=== PATIENT | female | born 1970 | race Caucasian/White ===

== ENCOUNTER → 2018-09-18 | Outpatient (CLI) | payer BC ==
[2018-09-21 00:07] LABS: ANTINUCLEAR ANTIBODIES DIRECT Negative (Negative); DEHYDROEPIANDROSTERONE SULFATE 164.8 ug/dL (41.2-243.7); TESTOSTERONE FREE (DIRECT) 1.5 pg/mL (0.0-4.2)
== END ==
LOC: M LAB 16:13
PROVIDERS: ATTEND Nurse Practitioner
DX: L64.8 Other androgenic alopecia (principal)

== ENCOUNTER → 2018-12-29 | Outpatient (CLI) | payer BC ==
[2018-12-29 11:25] LABS: MEAN CORPUSCULAR HEMOGLOBIN 29.4 pg (27.0-33.0); MEAN CORPUSCULAR HGB CONC 34.1 g/dl (32.0-36.5); PLATELET COUNT, AUTOMATED 301 10^3/uL (150-450); RED BLOOD COUNT 4.77 10^6/uL (4.00-5.40); WHITE BLOOD COUNT 9.9 10^3/uL (4.0-10.0)
[2018-12-29 11:57] LABS: THYROID STIMULATING HORMONE 1.98 uIU/ML (0.358-3.740)
== END ==
LOC: M LAB 10:01
PROVIDERS: ATTEND Dermatology
DX: L65.9 Nonscarring hair loss, unspecified (principal)

== ENCOUNTER → 2020-02-17 | Outpatient (CLI) | payer SELFPAY | LOC: M LABSMTC 16:13 | PROVIDERS: ATTEND Pediatrics | DX: Z20.828 Contact with and (suspected) exposure to other viral communicable diseases (principal) ==

== ENCOUNTER → 2020-04-17 | Outpatient (CLI) | payer SELFPAY | LOC: M LABSMTC 11:14 | PROVIDERS: ATTEND Anesthesiology | DX: Z01.812 Encounter for preprocedural laboratory examination (principal); Z20.822 Contact with and (suspected) exposure to COVID-19 ==

== ENCOUNTER 2020-04-22 06:49 | Day surgery (SDC) | payer BC ==
[~2020-04-22] VITALS: Ht 162.6 cm; Wt 79.4 kg
--- OUTSIDE RECORDS SUMMARY | 2020-04-22 06:58 | CCD ---
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 AUTM [phone] Problems Active Problems Provider Date Screening for malignant neoplasm of colon Elijah beverly M.D. Onset: 04/07/2020 Social History Type Date Description Comments Sex Unknown ETOH Use Denies alcohol use Tobacco Use Start: Unknown Patient has never smoked Allergies, Adverse Reactions, Alerts Description No Known Drug Allergies Medications Active Medications SIG Qnty Indications Ordering Provide r Date S[place] [id number] Tablets as directed 1box Elijah Rasheed M.D. 04/07/2020 History Medications No Active Medications Elijah mitchell M.D. 04/07/2020 - 04/07/2020 Immunizations Description No Information Available Vital Signs Date Vital Result Comment 04/07/2020 3:20pm Height 64 inches 5'4" Weight 178.00 lb BP Systolic 115 mmHg BP Diastolic 81 mmHg Heart Rate 93 /min BMI (Body Mass Index) 30.6 kg/m2 Weight 80.741 kg Body Temperature 97.5 F Results Description No Information Available Procedures Description No Information Available Medical Devices Description No Information Available Encounters Type Date Location Provider Dx Diagnosis Office Visit 04/07/2020 3:15p Main Office Elijah Rasheed M.D. Z 12.11 Encounter for screening for malignant neoplasm of colon Assessments Date Code Description Provider 04/07/2020 Z12.11 Screening for malignant neoplasm of colon Elijah Rasheed M.D. Plan of Treatment Future Appointment(s):* 04/22/2020 7:30 am - Elijah Rasheed M.D. at Main Office 04/07/2020 - Elijah Rasheed M.D.* Z12.11 Screening for malignant neoplasm of colon* Comments:* 49 yo wf who presents for a screening colonoscopy, due to father having colon cancer at age 69. No c/o abdominal pain, weight loss, change in bowel habits, or rectal bleeding. Positive family h/o colon cancer. No h/o chest pain, or sob. Plan:1.Schedule patient for a colonoscopy.2.Informed consent given to the patient.3.Pt. advised to stop aspirin,plavix, and anticoagulants at least 3 to 7 days prior to the procedure. Functional Status Description No Information Available Mental Status Description No Information Available Referrals Description No Information Available
--- OUTSIDE RECORDS SUMMARY | 2020-04-22 06:58 | CCD ---
Continuity of Care Document (CCD) Created on: 02/20/2020 AlessandroDanielLeonela M External Reference #: [id number] : 1970 Sex: Female Author Author Leonela WINTERS M.D. Organization Unknown Address [address] [place] [id number] Phone [phone] Problems Description No Information Available Social History Type Date Description Comments Sex Unknown ETOH Use Occasionally consumes alcohol Tobacco Use Start: Unknown Patient has never smoked Recreational Drug Use Denies Drug Use Allergies, Adverse Reactions, Alerts Description No Known Drug Allergies Medications Description No Active Medications Immunizations CPT Code Status Date Vaccine Lot # [id number] Refused 01/15/2019 Influenza Virus Vaccine, Quadrivalent, Slit Virus, Im Use 3Y & Up Vital Signs Date Vital Result Comment 01/14/2020 10:17am BP Systolic 114 mmHg BP Diastolic 66 mmHg Body Temperature 98.4 F Heart Rate 78 /min Respiratory Rate 14 /min Height 64 inches 5'4" Weight 178.00 lb [place] Body Weight 120 lb BMI (Body Mass Index) 30.6 kg/m2 O2 % BldC Oximetry 98 % 03/25/2019 1:46pm BP Systolic 112 mmHg BP Diastolic 70 mmHg Body Temperature 97.8 F Heart Rate 92 /min Respiratory Rate 16 /min Height 64 inches 5'4" Weight 172.00 lb [place] Body Weight 120 lb BMI (Body Mass Index) 29.5 kg/m2 O2 % BldC Oximetry 97 % Results Test Acquired Date Facility Test Result H/L Range Note Coronavirus 2019 ([facility]) 02/17/2020 [facility] ([facility]) [phone] Coronavirus 2018 ([facility]) <SEE NOTE> 1 1 Test: COVID-19 Nasal/Naspharynx Result: NOT DETECTED Reference Units: Not detected Note: Please consider re-collection of a new specimen, if clinically indicated. Note: The COVID-19 assay is under Emergency Use Authorization(EUA) by the U.S. Food and Drug Administration. [facility] is designated as a high complexity laboratory by the Clinical Laboratory Improvement Amendments of 1988(CLIA) and is qualified to perform this test. ASSAY INFORMATION: Real Time RT-PCR Patient samples for this assay have been pooled. All positive samples have been individually repeated for confirmation. The pooling protocol using the anayeli SARS-CoV-2 assay has been added to [id number] on December 26, 2019. Procedures Description No Information Available Medical Devices Description No Information Available Encounters Type Date Location Provider Dx Diagnosis Office Visit 01/14/2020 9:30a [facility] Wilberto Winters M. D. Z00.00 Encntr for general adult medical exam w/o abnormal findings Assessments Date Code Description Provider 01/14/2020 Z00.00 Encounter for genera l adult medical examination without abnormal findings Wilberto Winters M.D. Plan of Treatment Future Appointment(s):* 01/15/2021 9:30 am - Wilberto Winters M.D. at [facility] Functional Status Description No Information Available Mental Status Description No Information Available Referrals Refer to Reason for Referral Status Appt Date Elijah Rasheed MD family history of colon Ca- cscope Sent 04/07/2020 [address] [place] [address] [phone] Rocco Hadley M.D. family hx of colon caa- colonoscopy Sent [address] [address] [phone]
--- OUTSIDE RECORDS SUMMARY | 2020-04-22 06:58 | CCD ---
Author Author [facility] Organization [facility] Address Unknown Phone Unavailable Care Team Providers Care Mold Changer Name Role Phone Shubham Rasheed MD Unavailable Unavailable Shubham Rasheed MD Unavailable Unavailable Shubham Rasheed MD Unavailable Unavailable Shubham Rasheed MD Unavailable Unavailable Shubham Rasheed MD Unavailable Unavailable Shubham Rasheed MD Unavailable Unavailable Shubham Rasheed MD Unavailable Unavailable Shubham Rasheed MD Unavailable Unavailable Shubham Rasheed MD Unavailable Unavailable Shubham Rasheed MD Unavailable Unavailable Shubham Rasheed MD Unavailable Unavailable Shubham Rasheed MD Unavailable Unavailable Shubham Rahseed MD Unavailable Unavailable Shubham Rasheed MD Unavailable Unavailable Shubham Rasheed MD Unavailable Unavailable Shubham Rasheed MD Unavailable Unavailable Shubham Rasheed MD Unavailable Unavailable Shubham Rasheed MD Unavailable Unavailable Shubham Rasheed MD Unavailable Unavailable Shubham Rasheed MD Unavailable Unavailable Shubham Rasheed MD Unavailable Unavailable Shubham Rasheed MD Unavailable Unavailable Shubham Rasheed MD Unavailable Unavailable Shubham Rasheed MD Unavailable Unavailable Shubham Rasheed MD Unavailable Unavailable Shubham Rasheed MD Unavailable Unavailable Shubham Rasheed MD Unavailable Unavailable Shubham Rasheed MD Unavailable Unavailable Shubham Rasheed MD Unavailable Unavailable Shubham Rasheed MD Unavailable Unavailable Shubham Rasheed MD Unavailable Unavailable Shubham Rasheed MD Unavailable Unavailable Shubham Rasheed MD Unavailable Unavailable Shubham Rasheed MD Unavailable Unavailable Shubham Rasheed MD Unavailable Unavailable Wili S Elijah MCKEON Unavailable Unavailable Wili S Elijah MCKEON Unavailable Unavailable Wili, S Elijah MCKEON Unavailable Unavailable Wili S Elijah MCKEON Unavailable Unavailable Shubham Rasheed MD Unavailable Unavailable Shubham Rasheed MD Unavailable Unavailable Shubham Rasheed MD Unavailable Unavailable Shubham Rasheed MD Unavailable Unavailable Shubham Rasheed MD Unavailable Unavailable Shubham Rasheed MD Unavailable Unavailable Shubham Rasheed MD Unavailable Unavailable Shubham Rasheed MD Unavailable Unavailable Shubham Rasheed MD Unavailable Unavailable Shubham Rasheed MD Unavailable Unavailable JONNY BURNHAM Unavailable Unavailable Aj WINTERS MD Unavailable Unavailable Aj WINTERS MD Unavailable Unavailable Aj WINTERS MD Unavailable Unavailable Aj WINTERS MD Unavailable Unavailable Aj WINTERS MD Unavailable Unavailable Aj WINTERS MD Unavailable Unavailable Aj WINTERS MD Unavailable Unavailable Aj WINTERS MD Unavailable Unavailable Aj WINTERS MD Unavailable Unavailable Aj WINTERS MD Unavailable Unavailable Aj WINTERS MD Unavailable Unavailable Aj WINTERS MD Unavailable Unavailable Aj WINTERS MD Unavailable Unavailable Aj WINTERS MD Unavailable Unavailable Aj WINTERS MD Unavailable Unavailable Aj WINTERS MD Unavailable Unavailable Aj WINTERS MD Unavailable Unavailable Aj WINTERS MD Unavailable Unavailable Aj WINTERS MD Unavailable Unavailable Aj WINTERS MD Unavailable Unavailable Aj WINTERS MD Unavailable Unavailable Aj WINTERS MD Unavailable Unavailable Aj WINTERS MD Unavailable Unavailable Aj WINTERS MD Unavailable Unavailable Aj WINTERS MD Unavailable Unavailable Aj WINTERS MD Unavailable Unavailable Aj WINTERS MD Unavailable Unavailable Aj WINTERS MD Unavailable Unavailable Aj WINTERS MD Unavailable Unavailable Aj WINTERS MD Unavailable Unavailable Aj WINTERS MD Unavailable Unavailable Aj WINTERS MD Unavailable Unavailable Aj WINTERS MD Unavailable Unavailable Aj WINTERS MD Unavailable Unavailable Aj WINTERS MD Unavailable Unavailable Aj WINTERS MD Unavailable Unavailable Aj WINTERS MD Unavailable Unavailable Aj WINTERS MD Unavailable Unavailable Aj WINTERS MD Unavailable Unavailable Aj WINTERS MD Unavailable Unavailable Aj WINTERS MD Unavailable Unavailable Aj WINTERS MD Unavailable Unavailable Aj WINTERS MD Unavailable Unavailable Aj WINTERS MD Unavailable Unavailable Aj WINTERS MD Unavailable Unavailable Aj WINTERS MD Unavailable Unavailable Aj WINTERS MD Unavailable Unavailable Aj WINTERS MD Unavailable Unavailable Aj WINTERS MD Unavailable Unavailable Aj WINTERS MD Unavailable Unavailable Aj WINTERS MD Unavailable Unavailable SINGH H WILBERTO MCKEON Unavailable Unavailable SINGH H WILBERTO MCKEON Unavailable Unavailable Aj WINTERS MD Unavailable Unavailable SINGH H WILBERTO MCKEON Unavailable Unavailable SINGH H WILBERTO MCKEON Unavailable Unavailable SINGH H WILBERTO MCKEON Unavailable Unavailable SINGH H WILBERTO MCKEON Unavailable Unavailable SINGH H WILBERTO MCKEON Unavailable Unavailable SINGH H WILBERTO MCKEON Unavailable Unavailable SINGH H WILBERTO MCKEON Unavailable Unavailable SINGH H WILBERTO MCKEON Unavailable Unavailable SINGH H WILBERTO MCKEON Unavailable Unavailable SINGH H WILBERTO MCKEON Unavailable Unavailable SINGH H WILBERTO MCKEON Unavailable Unavailable Aj WINTERS MD Unavailable Unavailable Aj WINTERS MD Unavailable Unavailable Aj WINTERS MD Unavailable Unavailable Aj WINTERS MD Unavailable Unavailable Aj WINTERS MD Unavailable Unavailable Aj WINTERS MD Unavailable Unavailable Aj WINTERS MD Unavailable Unavailable Aj WINTERS MD Unavailable Unavailable Aj WINTERS MD Unavailable Unavailable Aj WINTERS MD Unavailable Unavailable Aj WINTERS MD Unavailable Unavailable Tej, Jonny Unavailable Tej, Jonny Unavailable Tej, Jonny Unavailable Tej, Jonny Unavailable Tej, Jonny Unavailable TEJ, JONNY Unavailable Unavailable Aj WINTERS MD Unavailable Unavailable Aj WINTERS MD Unavailable Unavailable Aj WINTERS MD Unavailable Unavailable Aj WINTERS MD Unavailable Unavailable Aj WINTERS MD Unavailable Unavailable Aj WINTERS MD Unavailable Unavailable Aj WINTERS MD Unavailable Unavailable Aj WINTERS MD Unavailable Unavailable Aj WINTERS MD Unavailable Unavailable Aj WINTERS MD Unavailable Unavailable Aj WINTERS MD Unavailable Unavailable Aj WINTERS MD Unavailable Unavailable Aj WINTERS MD Unavailable Unavailable Aj WINTERS MD Unavailable Unavailable Aj WINTERS MD Unavailable Unavailable Aj WINTERS MD Unavailable Unavailable Aj WINTERS MD Unavailable Unavailable Aj WINTERS MD Unavailable Unavailable Aj WINTERS MD Unavailable Unavailable Aj WINTERS MD Unavailable Unavailable Aj WINTERS MD Unavailable Unavailable Aj WINTERS MD Unavailable Unavailable Aj WINTERS MD Unavailable Unavailable Aj WINTERS MD Unavailable Unavailable Aj WINTERS MD Unavailable Unavailable Aj WINTERS MD Unavailable Unavailable Aj WINTERS MD Unavailable Unavailable Aj WINTERS MD Unavailable Unavailable Aj WINTERS MD Unavailable Unavailable Aj WINTERS MD Unavailable Unavailable Aj WINTERS MD Unavailable Unavailable Aj WINTERS MD Unavailable Unavailable Aj WINTERS MD Unavailable Unavailable Aj WINTERS MD Unavailable Unavailable Aj WINTERS MD Unavailable Unavailable Aj WINTERS MD Unavailable Unavailable Aj WINTERS MD Unavailable Unavailable Aj WINTERS MD Unavailable Unavailable SINGH H WILBERTO MCKEON Unavailable Unavailable SINGH H WILBERTO MCKEON Unavailable Unavailable Aj WINTERS MD Unavailable Unavailable SINGH H WILBERTO MCKEON Unavailable Unavailable Aj WINTERS MD Unavailable Unavailable Aj WINTERS MD Unavailable Unavailable SINGH H WILBERTO MKCEON Unavailable Unavailable Aj WINTERS MD Unavailable Unavailable Aj WINTERS MD Unavailable Unavailable SINGH H WILBERTO MCKEON Unavailable Unavailable Aj WINTERS MD Unavailable Unavailable Aj WINTERS MD Unavailable Unavailable Aj WINTERS MD Unavailable Unavailable Aj WINTERS MD Unavailable Unavailable Aj WINTERS MD Unavailable Unavailable Aj WINTERS MD Unavailable Unavailable Aj WINTERS MD Unavailable Unavailable Aj WINTERS MD Unavailable Unavailable Aj WINTERS MD Unavailable Unavailable Aj WINTERS MD Unavailable Unavailable Aj WINTERS MD Unavailable Unavailable Aj WINTERS MD Unavailable Unavailable Aj WINTERS MD Unavailable Unavailable Aj WINTERS MD Unavailable Unavailable Aj WINTERS MD Unavailable Unavailable Aj WINTERS MD Unavailable Unavailable Aj WINTERS MD Unavailable Unavailable Aj WINTERS MD Unavailable Unavailable Aj WINTERS MD Unavailable Unavailable Aj WINTERS MD Unavailable Unavailable Aj WINTERS MD Unavailable Unavailable Aj WINTERS MD Unavailable Unavailable Aj WINTERS MD Unavailable Unavailable Aj WINTERS MD Unavailable Unavailable Aj WINTERS MD Unavailable Unavailable Aj WINTERS MD Unavailable Unavailable Aj WINTERS MD Unavailable Unavailable Aj WINTERS MD Unavailable Unavailable Jarrett, D Kendra SUPERINTENDENT LOGGING Unavailable Unavailable Jarrett, D Kendra SUPERINTENDENT LOGGING Unavailable Unavailable Jarrett, D Kendra SUPERINTENDENT LOGGING Unavailable Unavailable Jarrett, D Kendra SUPERINTENDENT LOGGING Unavailable Unavailable Jarrett, D Kendra SUPERINTENDENT LOGGING Unavailable Unavailable Jarrett, D Kendra SUPERINTENDENT LOGGING Unavailable Unavailable Jarrett, D Kendra SUPERINTENDENT LOGGING Unavailable Unavailable Jarrett, D Kendra SUPERINTENDENT LOGGING Unavailable Unavailable Jarrett, D Kendra SUPERINTENDENT LOGGING Unavailable Unavailable Jarrett, D Kendra SUPERINTENDENT LOGGING Unavailable Unavailable Jarrett, D Kendra SUPERINTENDENT LOGGING Unavailable Unavailable Jarrett, D Kendra SUPERINTENDENT LOGGING Unavailable Unavailable Jarrett, D Kendra SUPERINTENDENT LOGGING Unavailable Unavailable Jarrett, D Kendra SUPERINTENDENT LOGGING Unavailable Unavailable Jarrett, D Kendra SUPERINTENDENT LOGGING Unavailable Unavailable Jarrett, D Kendra SUPERINTENDENT LOGGING Unavailable Unavailable Jarrett, D Kendra SUPERINTENDENT LOGGING Unavailable Unavailable Jarrett, D Kendra SUPERINTENDENT LOGGING Unavailable Unavailable Jarrett, D Kendra SUPERINTENDENT LOGGING Unavailable Unavailable Jarrett, D Kendra SUPERINTENDENT LOGGING Unavailable Unavailable Jarrett, D Kendra SUPERINTENDENT LOGGING Unavailable Unavailable Jarrett, D Kendra SUPERINTENDENT LOGGING Unavailable Unavailable Jarrett, D Kendra SUPERINTENDENT LOGGING Unavailable Unavailable Jarrett, D Kendra SUPERINTENDENT LOGGING Unavailable Unavailable Jarrett, D Kendra SUPERINTENDENT LOGGING Unavailable Unavailable Jarrett, D Kendra SUPERINTENDENT LOGGING Unavailable Unavailable Jarrett, D Kendra SUPERINTENDENT LOGGING Unavailable Unavailable Jarrett, D Kendra SUPERINTENDENT LOGGING Unavailable Unavailable Jarertt, D Kendra SUPERINTENDENT LOGGING Unavailable Unavailable Jarrett, D Kendra SUPERINTENDENT LOGGING Unavailable Unavailable Jarrett, D Kendra SUPERINTENDENT LOGGING Unavailable Unavailable Jarrett, D Kendra SUPERINTENDENT LOGGING Unavailable Unavailable Jarrett, D Kendra SUPERINTENDENT LOGGING Unavailable Unavailable Jarrett, D Kendra SUPERINTENDENT LOGGING Unavailable Unavailable Jarrett, D Kendra SUPERINTENDENT LOGGING Unavailable Unavailable Jarrett, D Kendra SUPERINTENDENT LOGGING Unavailable Unavailable Jarrett, D Kendra SUPERINTENDENT LOGGING Unavailable Unavailable Jarrett, D Kendra SUPERINTENDENT LOGGING Unavailable Unavailable Jarrett, D Kendra SUPERINTENDENT LOGGING Unavailable Unavailable Jarrett, D Kendra SUPERINTENDENT LOGGING Unavailable Unavailable Jarrett, D Kendra SUPERINTENDENT LOGGING Unavailable Unavailable Jarrett, D Kendra SUPERINTENDENT LOGGING Unavailable Unavailable Jarrett, D Kendra SUPERINTENDENT LOGGING Unavailable Unavailable Jarrett, D Kendra SUPERINTENDENT LOGGING Unavailable Unavailable Jarrett, D Kendra SUPERINTENDENT LOGGING Unavailable Unavailable Jarrett, D Kendra SUPERINTENDENT LOGGING Unavailable Unavailable Jarrett, D Kendra SUPERINTENDENT LOGGING Unavailable Unavailable Jarrett, D Kendra SUPERINTENDENT LOGGING Unavailable Unavailable Jarrett, D Kendra SUPERINTENDENT LOGGING Unavailable Unavailable Jarrett, D Kendra SUPERINTENDENT LOGGING Unavailable Unavailable Jarrett, D Kendra SUPERINTENDENT LOGGING Unavailable Unavailable Re-disclosure Warning The records that you are about to access may contain information from federally-assisted alcohol or drug abuse programs. If such information is present, then the following federally mandated warning applies: This information has been disclosed to you from records protected by federal confidentiality rules (42 CFR part 2). The federal rules prohibit you from making any further disclosure of this information unless further disclosure is expressly permitted by the written consent of the person to whom it pertains or as otherwise permitted by 42 CFR part 2. A general authorization for the release of medical or other information is NOT sufficient for this purpose. The Federal rules restrict any use of the information to criminally investigate or prosecute any alcohol or drug abuse patient.The records that you are about to access may contain highly sensitive health information, the redisclosure of which is protected by Article 27-F of the [place] State Public Health law. If you continue you may have access to information: Regarding HIV / AIDS; Provided by facilities licensed or operated by the [facility] Office of Mental Health; or Provided by the [facility] Office for People With Developmental Disabilities. If such information is present, then the following [facility] mandated warning applies: This information has been disclosed to you from confidential records which are protected by state law. State law prohibits you from making any further disclosure of this information without the specific written consent of the person to whom it pertains, or as otherwise permitted by law. Any unauthorized further disclosure in violation of state law may result in a fine or fci sentence or both. A general authorization for the release of medical or other information is NOT sufficient authorization for further disc losure. Encounters Encounter Providers Location Date Indications Data Source(s ) Outpatient Attender: Elijah Rasheed MD Main Office 04/07/2020 02:15:00 PM EST [facility] ([facility]) Outpatient Referrer: Kendra Jarrett NP 03/31/2020 03:41:09 PM EST [facility] ELIJAHC-DAVID 03/31/2020 03:36:15 PM EST [facility] Outpatient Attender: JONNY BURNHAMAttender: JONNY NAVA C-DAVID 03/26/2020 12:00:00 AM EST - 03/26/2020 10:01:29 AM EST [facility] Outpatient Referrer: Jonny Burnham 03/04/2020 03:08:58 PM ES T [facility] Outpatient Attender: WILBERTO WINTERS MD 02/24/2020 08 :53:00 AM EST X VIEWS LEFT BREAST [facility] X VIEWS LEFT BREAST Outpatient Attender: WILBERTO WINTERS MD 02/10/2020 03:10:00 PM EST SCREEN [facility] SCREEN Outpatient Attender: WILBERTO WINTERS MD [facility] 05/2019 08:30:00 AM EST [facility] ([facility] [address] [place] [phone] 09/03/2019 12:00:00 AM EDT eCW1 ([facility]) [facility] [address] [place] [phone] 02/27/2019 12:00:00 AM EST eCW1 ([facility]) Medications Medication Brand Name Start Date Product Form Dose Route Admi nistrative Instructions Pharmacy Instructions Status Indications Reaction Description Data Source(s) 1.479-0.188 gram 04/16/2020 12:00:00 AM EST tablet 24 TAKE DIRECTED TAKE DIRECTED SOLD: 04/16/2020 [facility] No Active Medications 04/07/2020 12:00:00 AM EST completed [facility] ([facility]) Sutab Sutab 04/07/2020 12:00:00 AM EST active [facility] ([facility]) 75 mg 04/08/2019 12:00:00 AM EST capsule 10 TAKE 1 CAPSULE BY MOUTH ONCE DAILY FOR 10 DAYS TAKE 1 CAPSULE BY MOUTH ONCE DAILY FOR 10 DAYS SOLD: 04/08/2019 [facility] Insurance Providers Payer name Policy type / Coverage type Policy ID Covered republican ID Covered republican's relationship to kruse Policy Kruse Plan Information [employer] [place] P[place]/307 [id number] SELF PAY ONLY [id number] [employer] BCBS [id number] [employer] BCBS [id number] [facility] YND [id number] [employer] [place] P[place] 302/307 [id number] [employer] [place] P[place] 302/307 [id number] [employer] [place] P[place] 302/307 [id number] [employer] [place] P[place] 302/307 [id number] [employer] [place] P[place] 302/307 [id number] [employer] [place] P[place] 302/307 [id number] Problems, Conditions, and Diagnoses Code Display Name Description Problem Type Effective Dates Data Source(s) 741858988 Screening for malignant neoplasm of colo n Screening for malignant neoplasm of colon Problem 04/07/2020 12:00:00 AM EST [facility] ([facility]) R92.8 Abnormal finding on breast imaging Abnormal find ing on breast imaging [id number] 03/04/2020 12:00:00 AM EST [facility] Results ID Date Data Source [id number] 04/17/2020 11:30:00 AM EST [facility] Name Value Range Interpretation Code Description Data Alla rce(s) Supporting Document(s) SARS coronavirus 2 RNA Not Detected [facility] This lab was ordered by [facility] and reported by [facility]. ID Date Data Source [id number] 03/31/2020 03:36:15 PM EST [facility] NT INFORMATIONPatient MRN Name Date of Age Gend*PT [id number] [facility] 1970 49 years F ---PT Location Admission Date/Time Visit ID Attending Provider --- --- --- --- EPI ID CSN Admitting Pro vider [id number] ---Addended by: KENDRA JARRETT on: 03/31/2020 03:36 PM Modules accepted: Orders Name Value Range Interpretation Code Description Data Alla rce(s) Supporting Document(s) ID Date Data Source [id number] 03/26/2020 11:59:24 AM EST [facility] NT INFORMATIONPatient MRN Name Date of Age Gend*PT [id number] [facility] 1970 49 years F ---PT Location Admission Date/Time Visit ID Attending Provider --- --- --- --- EPI ID CSN Admitting Pro vider [id number] ---Addended by: JONNY BURNHAM on: 03/26/2020 11:59 AM Modules accepted: Level of Service Name Value Range Interpretation Code Description Data Alla rce(s) Supporting Document(s) ID Date Data Source [id number] 03/26/2020 11:33:44 AM EST [facility] NT INFORMATIONPatient MRN Name Date of Age Gend*PT [id number] [facility] 1970 49 years F ---PT Location Admission Date/Time Visit ID Attending Provider --- --- --- --- EPI ID CSN Admitting Pro vider [id number] ---03/26/20 Ariana Montiel [id number] female 49 yearsLaticjoie Montiel is a new breast consultation; BI-RADS 4; BX recommended.Pertinent History:Ariana Montiel comes in today for new breast consultation referred from . She had her screening mammogram completed 02/10/20, there was a focalasymmetry about 11:00 in her left breast. Additional imaging was needed. Leftmammo/sono completed 02/24/20, there was persistent focal asymmetry seen oncompression views, no US correlate. Stereo bx recommended, which she isscheduled for today.03/26/2020 LEFT stereo bx: results pendingPrevious breast bx: noneMenstrual History:Menarche: 13Age at first live :32Menopause: pre menopausalG 4 , P 3HRT: noInfertility Drugs in past: noOC use in past: yesSocial History:Occupation: [employer] MarriedSmoking: deniesETOH: deniesFamily cancer history:PGM - breast 70sMGM - ovarian 80sF - crc 68PA - crc ~60M - had GT, negative per ptSubjective:Ariana Montiel comes in today for new breast consultation for abnormal findings ofthe left breast on recent imaging as noted above. Stereotactic core bx isrecommended, which she is scheduled for today. No palpable abnormality noted onher CBE.I reviewed her imaging with her in detail. She has been scheduled today for abreast core biopsy. We discussed the biopsy procedure and what to expect duringand afterward. She understands that once the results have been received shewill be notified of them, and given appropriate instructions and information onhow we will proceed with her follow up. I tried to assure her most biopsiesresult in benign disease, but obviously we will not know this until it has beencompleted.Should the results reveal a breast cancer, or high risk lesion, she will be setup for surgical consultation here in our office. Should the biopsy prove to bebenign, she will return in 6 months for another clinical breast examination, andshort term imaging. We discussed how a biopsy is performed, she has agreed tomove forward with the biopsy.Current Meds: No current outpatient medications on file.Allergies: No Known Drug AllergiesHistory reviewed. No pertinent past medical history.Family HistoryProblem Relation Age of Onset Colon cancer Father Colon cancer Paternal Aunt Ovarian cancer Maternal Grandmother 80 Breast cancer Paternal Grandmother 70Social HistorySocioeconomic History Marital status: Spouse name: Not on file Number of children: Not on file Years of education: Not on file Highest education level: Not on fileOccupational History Not on fileSocial Needs Financial resource strain: Not on file Food insecurity: Worry: Not on file Inability: Not on file Transportation needs: Medical: Not on file Non-medical: Not on fileTobacco Use Smoking status: Never Smoker Smokeless tobacco: Current UserSubstance and Sexual Activity Alcohol use: Not Currently Drug use: Never Sexual activity: Not on fileLifestyle Physical activity: Days per week: Not on file Minutes per session: Not on file Stress: Not on fileRelationships Social connections: Talks on phone: Not on file Gets together: Not on file Attends jain service: Not on file Active member of club or organization: Not on file Attends meetings of clubs or organizations: Not on file R elationship status: Not on file Intimate partner violence: Fear of current or ex partner: Not on file Emotionally abused: Not on file Physically abused: Not on file Forced sexual activity: Not on fileOther Topics Concern Bike Helmet Not Asked History of Falls Not Asked Self-Exams Not Asked Caffeine Concern Not Asked Hobby Hazards Not Asked Sleep Concern Not Asked Daily Calcium Supplement Not Asked Lead Exposure Not Asked Special Diet Not Asked Daily Vitamin D Supplement Not Asked Service Not Asked Stress Concern Not Asked Domestic Violence in home Not Asked Radon exposure Not Asked Weight Concern Not Asked Exercise Not Asked Seat Belt Not Asked Well water Not Asked Firearms in home Not AskedSocial History Narrative Not on filePast Surgical History:Procedure Laterality Date SECTIONReview of SystemsReview of SystemsConstitutional: Negative.HENT: Negative.Eyes: Negative.Respiratory: Negative.Cardiovascular: Negative.Gastrointestinal: Negative.Endocrine: Negative.Genitourinary: Negative.Musculoskeletal: Negative.Skin: Negative.Allergic/Immunologic: Negative.Neurological: Negative.Hematological: Negative.Psychiatric/Behavioral: Negative.Objective:Vitals: 03/26/20 0934BP: 116/79Pulse: 81Resp: 18Exam:Const: Appears pleasant. No signs of apparent distress present. Alert andoriented. Patient is a good historian.Head/Face: Atraumatic, normocephalic and no lesions or masses.Eyes: Conjunctivae pink. No icterus of the sclerae bilaterally.ENMT: Oral mucosa: pink and moist with no lesions.Neck: Supple. Palpation reveals no lymphadenopathy, swelling or tenderness.Trachea midline.Resp: Respirations are regular. Lungs are clear bilaterally.CV: Rate is regular. Rhythm is regular. Extremities: No clubbing, cyanosis oredema.Breasts: Breast exam was performed while patient was in a supine position and ghulam sitting position. Breasts are medium size and symmetrical. No dimpling of thebreasts bilaterally. Breasts are normal and no dominant mass on both breasts.Bilateral infraclavicular nodes are non-palpable. Nipples: No discharge orinversion of the nipples bilaterally. Axillae: Axillae are normal to palpationbilaterally, but no lymphadenopathy of the axillae.Musculo: Walks with a normal gait for age. Upper Extremities: Full ROMbilaterally.Lower Extremities: Full ROM bilaterally.Skin: No jaundice, lesion or rash.Neuro: Neuro reveals no focal deficits.Today's imaging reveals:N/aAssessment / Plan:1. Abnormal finding on breast imagingAssessment: The patient has an area of moderate suspicion in the leftbreast(s). We recommend a/an stereotactic core biopsy. The procedure and thepost procedural period was discussed with the patient. The risks and thebenefits were discussed and included but did not limited to bleeding andinfections. The patient understands and accepts the risks and complication andwould like to move forward with the procedure.Plan: The patient will be set up for a stereotactic core biopsy of the leftbreast(s). She is aware not to take aspirin or aspirin products 5 days beforethe biopsy. We will contact her with the results. In the meantime, azam call with any problems, questions, or concerns.At today's appointment we discussed the physical examination and imagingfindings, and any questions they had were answered.We look for to seeing at her next appointment and we would be happy to see herin the interim if needed. She understands she can contact us at any time if shenotes any change in her self breast/chest wall exam, or has any questionsregarding her breast health.Dr Fontanez and Dr Garza's office follows NCCN guidelines for benign and malignantbreast disease, she is my collaborating physician. I have followed protocolsestablished with them, and periodically review charts with them.Certain parts of this note may have been carried over from prior notes tomaintain patient's pertinent medical history and continuity of care. The detailswere verified and edited as appropriate.Signature: Jonny LAILA BurnhamDate: March 26, 2020Time: 11:33 AMThis document or parts of this document, were dictated using SWIIM System software. A reasonable attempt at proofreading has beenmade to minimize errors. Please call with any questions or corrections. Name Value Range Interpretation Code Description Data Alla rce(s) Supporting Document(s) ID Date Data Source [id number] 03/26/2020 10:35:00 AM EST [facility] EOTACT[facility] BREAST BIOPSY LEFTADDENDUM: Surgical pathology report from [facility] dated 03/29/2020 is now available.Specimen received.A: Stereotactic left breast biopsy - density.Diagnosis.Breast density left core-biopsy: Benign breast tissue with fibrocystic changes including duct dilatation, apocrine metaplasia with cyst formation and mild adenosis. No significant atypia seen.Pathologic findings are likely concordant with radiographic findings.Recommend a follow-up mammogram of the left breast in six months' time.Dictated by: GER CHUNG M.D. on 1 Transcribed by: Laureano 03/30/2020 04:48 PM CDS G Code: , ,CDS Modifier: , ,cc: End of Addendum Report CLINICAL HISTORY: Left breast density.COMPARISON: Prior outside mammogram.TECHNIQUE: See belowFINDINGS: After the risks and benefits of the procedure were explained to the patient, informed consent was obtained. The patient was brought to the stereotactic unit where seam feller and stereotactic images of the left breast were obtained. The density of interest wa s identified in the posteromedial left breast. The coordinates of the calcifications were calculated and transmitted to the stereotactic unit. The breast was sterilely prepped, 1% lidocaine was used for local anesthesia, a small skin devaughn was made. The stereotactic needle was advanced into the breast and additional stereotactic images demonstrate satisfactory needle positioning. The needle was fired. Subsequently, twelve 10 gauge vacuum assisted core biopsy specimens were obtained. The breast was lavaged. A spiral shaped biopsy clip was then placed. The sheath was removed and hemostasis was achieved using manual compression. A sterile dressing was applied.Postprocedure mammogram demonstrates satisfactory positioning of the biopsy clip with respect to the previously seen density.Providers: Dr. Strattonomplications: None.IMPRESSION: Status post successful stereotactic biopsy of indeterminate left breast density.DISCLAIMER: None.Dictated by: THAD WILEY M.D. on 1 Transcribed by: swetha 03/26/2020 11:52 AM CDS G Code: , ,CDS Modifier: , ,cc: Name Value Range Interpretation Code Description Data Alla rce(s) Supporting Document(s) ID Date Data Source [id number] 02/24/2020 09:46:[address] [address] [phone] NAME SEX PT STATUS ACCOUNT NUMBER HUMERABrandoARIANA Michaels REG REF [id number] ORDERING PHYSICIAN LOCATION MEDICAL RECORD NO. Wilberto Aj Winters MAMMO [id number] ATTENDING PHYSICIAN DATE OF DATE OF EXAM/TIME Wilberto Winters 1970 02/24/20849 TYPE / EXAM DIG MAMMO DIAG LT 2D ONLY REASON FOR EXAM LEFT BREAST X VIEWS [address] [id number] [phone] NAME SEX PT STATUS ACCOUNT NUMBER HUMERABrandoARIANA Michaels REG REF [id number] ORDERING PHYSICIAN LOCATION MEDICAL RECORD NO. Wilberto Winters MAMMO [id number] ATTENDING PHYSICIAN DATE OF DATE OF EXAM/TIME Wilberto Winters 1970 02/24/20849 TYPE / EXAM DIG MAMMO DIAG LT 2D ONLY REASON FOR EXAM LEFT BREAST X VIEWS LAST CLINICAL BREAST EXAM: FIVE YEAR RISK: % LIFETIME RISK: % FAMILY HISTORY OF BREAST CARCINOMA: COMPARISON: 02/10/2020 Spot views were obtained of the left breast FINDINGS: The left breast is composed of scattered areas of fibroglandular density. A mostly well-defined asymmetry best seen on the CC view of slightly medial in location posterior depth is reidentified.. This could be in the slightly in the superior portion of left breast. This measures approximately 6.7 mm. This could represent a lymph node however definite features are not clearly seen. TARGETED ULTRASOUND OF THE LEFT BREAST. COMPARISON: Additional views obtained today FINDINGS: No disturbing appearing cystic or solid mass involving either breast. The area of mostly defined asymmetry was not seen. IMPRESSION: An area of asymmetry seen in the medial breast was not definitely seen on ultrasound and is presumed to be solid Correlated targeted ultrasound of the left breast does not identified is asymmetry.. Since this is a new finding and may represent a solid mass stereotactic biopsy is recommended for further evaluation. OVERALL FINAL ASSESSMENT OF FINDINGS BI-RADS 4 - Suspicious Abnormality OVERALL FINAL ASSESSMENT OF THE BREAST COMPOSITION Breast Density Classification: B Description: The breasts are composed of scattered areas of fibroglandular density. Reported By Rica López MD on 02/24/20945 Signed By Rica López MD on 02/24/20 1041 Date Time CC: Rica López MD; Wilberto Rocha Singh Techn: BAKLE Trans Dt/Tm: Trans by: DT Prt Dt/Tm: : Total DLP = 0.00 mGy-cm : Total Radiation Dose = 0.0000 mSv Lifetime Dose: 0 mSv Reported By Rica López MD on 02/24/20945 Signed By Rica López MD on 02/25/20 1239 Date Time CC: Rica López MD; Wilberto Winters Techn: BAKLE Trans Dt/Tm: Trans by: DT Prt Dt/Tm: : Total DLP = 0.00 mGy-cm : Total Radiation Dose = 0.0000 mSv Lifetime Dose: 0 mSv Name Value Range Interpretation Code Description Data Alla rce(s) Supporting Document(s) ID Date Data Source [id number] 02/24/2020 09:46:00 AM EST [address] [id number] [phone] NAME SEX PT STATUS ACCOUNT NUMBER ARIANA Michaels REG REF [id number] ORDERING PHYSICIAN LOCATION MEDICAL RECORD NO. Wilberto Winters MAMMO [id number] ATTENDING PHYSICIAN DATE OF DATE OF EXAM/TIME Wilberto Winters 1970 02/24/20923 TYPE / EXAM US Breast - Limited Unilat REASON FOR EXAM LEFT BREAST X VIEWS [address] [address] [phone] NAME SEX PT STATUS ACCOUNT NUMBER ARIANA MONTIEL REG REF [id number] ORDERING PHYSICIAN LOCATION MEDICAL RECORD NO. Wilberto Winters MAMMO [id number] ATTENDING PHYSICIAN DATE OF DATE OF EXAM/TIME SinghWilberto 1970 02/24/20849 TYPE / EXAM DIG MAMMO DIAG LT 2D ONLY REASON FOR EXAM LEFT BREAST X VIEWS LAST CLINICAL BREAST EXAM: FIVE YEAR RISK: % LIFETIME RISK: % FAMILY HISTORY OF BREAST CARCINOMA: COMPARISON: 02/10/2020 Spot views were obtained of the left breast FINDINGS: The left breast is composed of scattered areas of fibroglandular density. A mostly well-defined asymmetry best seen on the CC view of slightly medial in location posterior depth is reidentified.. This could be in the slightly in the superior portion of left breast. This measures approximately 6.7 mm. This could represent a lymph node however definite features are not clearly seen. TARGETED ULTRASOUND OF THE LEFT BREAST. COMPARISON: Additional views obtained today FINDINGS: No disturbing appearing cystic or solid mass involving either breast. The area of mostly defined asymmetry was not seen. IMPRESSION: An area of asymmetry seen in the medial breast was not definitely seen on ultrasoun d and is presumed to be solid Correlated targeted ultrasound of the left breast does not identified is asymmetry.. Since this is a new finding and may represent a solid mass stereotactic biopsy is recommended for further evaluation. OVERALL FINAL ASSESSMENT OF FINDINGS BI-RADS 4 - Suspicious Abnormality OVERALL FINAL ASSESSMENT OF THE BREAST COMPOSITION Breast Density Classification: B Description: The breasts are composed of scattered areas of fibroglandular density. Reported By Rica López MD on 02/24/20945 Signed By Rica López MD on 02/24/20 1041 Date Time CC: Rica López MD; Wilberto Winters Techn: BAKLE Trans Dt/Tm: Trans by: DT Prt Dt/Tm: : Total DLP = 0.00 mGy-cm : Total Radiation Dose = 0.0000 mSv Lifetime Dose: 0 mSv Reported By Rica López MD on 02/24/20945 Signed By Rica López MD on 02/25/20 1239 Date Time CC: Rica López MD; Wilberto Winters Techn: TABSA Trans Dt/Tm: Trans by: DT Prt Dt/Tm: [phone]: Total DLP = 0.00 mGy-cm : Total Radiation Dose = 0.0000 mSv Lifetime Dose: 0 mSv Name Value Range Interpretation Code Description Data Alla rce(s) Supporting Document(s) ID Date Data Source [id number] 02/17/2020 03:00:00 PM EST [facility] ([facility] Name Value Range Interpretation Code Description Data [facility] rce(s) Supporting Document(s) Laboratory test finding (navigational concept) Laboratory test result [facility] ([facility] Test: COVID-19 Nasal/Naspharynx Result: NOT DETECTED Reference Units: Not detected Note: Please consider re-collection of a new specimen, if clinically indicated. Note: The COVID-19 assay is under Emergency Use Authorization(EUA) by the U.S. Food and Drug Administration. [facility] is designated as a high complexity laboratory by the Clinical Laboratory Improvement Amendments of 1988(CLIA) and is qualified to perform this test. ASSAY INFORMATION: Real Time RT-PCR Patient samples for this assay have been pooled. All positive samples have been individually repeated for confirmation. The pooling protocol using the anayeli SARS-CoV-2 assay has been added to [id number] on December 26, 2019. ID Date Data Source [id number] 02/17/2020 12:00:00 AM EST [facility] Name Value Range Interpretation Code Description Data [facility] Supporting Document(s) 2019-nCoV RNA XXX SUMANTH+probe-Imp [facility] This lab was ordered by [facility] and reported by [employer] ID Date Data Source [id number] 02/11/2020 05:25:00 PM EST [facility] [address] [facility] [place] [address] [phone] NAME SEX PT STATUS ACCOUNT NUMBER ARIANA MONTIEL REG REF [id number] ORDERING PHYSICIAN LOCATION MEDICAL RECORD NO. Wilberto ROSALES [id number] ATTENDING PHYSICIAN DATE OF DATE OF EXAM/TIME Wilberto Winters 1970 02/10/201530 TYPE / EXAM 3D DIG MAMMO SCREEN BILAT REASON FOR EXAM SCREEN LAST CLINICAL BREAST EXAM: 2018 FIVE YEAR RISK: 1.3% LIFETIME RISK: 12.5% FAMILY HISTORY OF BREAST CARCINOMA: Grandmother COMPARISON: 07/20/2017 2D bilateral digital mammogram in the CC and MLO projections was performed with supplemental 3D tomosynthesis of both breasts. FINDINGS: Craniocaudad and oblique lateral views of the breasts were obtained. The breasts are composed of scattered areas of fibroglandular density. Right breast is unremarkable. The left breast demonstrates an area of focal asymmetry seen in the posterior depth approximately 11:00 that may represent a lymph node however additional imaging is recommended. This is to include spot views and possible ultrasound. This is best seen on cc pari 37/70, and MLO pari 54/84 IMPRESSION: Unremarkable examination of the right breast. Incomplete examination left breast. Additional imaging is to include spot views and possible ultrasound OVERALL FINAL ASSESSMENT OF FINDINGS BI-RADS 0 - Incomplete: Needs Additional Imaging Evaluation. OVERALL FINAL ASSESSMENT OF THE BREAST COMPOSITION Breast Density Classification: B Description: The breasts are composed of scattered areas of fibroglandular density. This mammogram was read with the assistance of M-Vu, an FDA-approved computer-aided detection system for mammography. Reported By Rica López MD on 02/11/205 Signed By Rica López MD on 02/11/20 173 Date Time CC: Rica López MD; Wilberto Aj Singh Techn: PELBU Trans Dt/Tm: Trans by: DT Prt Dt/Tm: [id number]: Total DLP = 0.00 mGy-cm [id number]: Total Radiation Dose = 0.0000 mSv Lifetime Dose: 0 mSv Name Value Range Interpretation Code Description Data Alla rce(s) Supporting Document(s) Procedure Social History Code Duration Value Status Description Data Source(s ) Alcohol intake 03/26/2020 12:00:00 AM EST Not Currently completed [facility] Smoking 03/26/2020 12:00:00 AM EST Never smoker completed Never s maria tker [facility] Vital Signs ID Date Data Source UNK Name Value Range Interpretation Code Description Data Source(s) Body temperature 97.5 [degF] 97.5 [degF] [facility] ([facility]) Body weight 80.741 kg 80.741 kg [facility] Body mass index (BMI) [Ratio] 30.6 kg/m2 30.6 k g/m2 [facility] ([facility]) Heart rate 93 /min 93 /min [facility] Diastolic blood pressure 81 mm[Hg] 81 mm[Hg] [facility] ([facility]) Systolic blood pressure 115 mm[Hg] 115 mm[Hg] [facility] ([facility]) Body weight 178.00 [lb_av] 178.00 [lb_av] [facility] T ([facility]) Body height 64 [in_i] 64 [in_i] [facility] 5'4" Body mass index (BMI) [Ratio] 29.18 kg/m2 29.18 kg/m2 [facility] Body weight 77.111 kg 77.111 kg [facility] Body height 162.6 cm 162.6 cm [facility] Respiratory rate 18 /min 18 /min [facility] Heart rate 81 /min 81 /min [facility] Diastolic blood pressure 79 mm[Hg] 79 mm[Hg] [facility] Systolic blood pressure 116 mm[Hg] 116 mm[Hg] [facility] Oxygen saturation in Arterial blood by Pulse oximetry 98 % 98 % [facility] ([facility] Body mass index (BMI) [Ratio] 30.6 kg/m2 30.6 k g/m2 [facility] ([facility] [place] body weight 120 [lb_av] 120 [lb_av] [facility] ([facility] Body weight 178.00 [lb_av] 178.00 [lb_av] [facility] ([facility] Body height 64 [in_i] 64 [in_i] [facility] 5'4" Respiratory rate 14 /min 14 /min [facility] ( [facility] Heart rate 78 /min 78 /min [facility] ([facility] Body temperature 98.4 [degF] 98.4 [degF] [facility] ([facility] Diastolic blood pressure 66 mm[Hg] 66 mm[Hg] [facility] ([facility] Systolic blood pressure 114 mm[Hg] 114 mm[Hg] [facility] ([facility] Oxygen saturation in Arterial blood by Pulse oximetry 97 % 97 % [facility] ([facility] Body mass index (BMI) [Ratio] 29.5 kg/m2 29.5 k g/m2 [facility] ([facility] [place] body weight 120 [lb_av] 120 [lb_av] [facility] ([facility] Body weight 172.00 [lb_av] 172.00 [lb_av] [facility] ([facility] Body height 64 [in_i] 64 [in_i] [facility] 5'4" Respiratory rate 16 /min 16 /min [facility] ( [facility] Heart rate 92 /min 92 /min [facility] ([facility] Body temperature 97.8 [degF] 97.8 [degF] [facility] ([facility] Diastolic blood pressure 70 mm[Hg] 70 mm[Hg] [facility] ([facility] Systolic blood pressure 112 mm[Hg] 112 mm[Hg] M EDENT ([facility] Diastolic blood pressure 64 mm[Hg] 64 mm[Hg] eCW1 ([facility]) Systolic blood pressure 102 mm[Hg] 102 mm[Hg] e CW1 ([facility]) Body temperature 98.3 [degF] 98.3 [degF] eCW1 ( [facility]) Respiratory rate 18 /min 18 /min eCW1 ([facility]) Heart rate 74 /min 74 /min eCW1 ([facility]) Body mass index (BMI) [Ratio] 29.35 kg/m2 29.35 kg/m2 eCW1 ([facility]) Body height 64 [in_us] 64 [in_us] eCW1 ([facility]) Body weight Measured 171 [lb_av] 171 [lb_av] eC W1 ([facility])
[2020-04-22] MEDS ORDERED: NS 1,000 ML IV ONE (07:00)
[2020-04-22] MEDS ORDERED: LIDOCAINE 2% 100MG/5ML SDV (FOR ANES.) As Ordered ONE (07:13)
[2020-04-22] MEDS ORDERED: propofoL 200 MG/20 ML VIAL As Ordered ONE (07:13)
[2020-04-22] MEDS ORDERED: GLYCOPYRROLATE INJ 0.2 MG/ML 2 ML VIAL As Ordered ONE (07:43)
--- NOTE | 2020-04-22 07:54 | ROOR ---
Patient Name: Leonela Francois Procedure Date: 04/22/2020 7:33 AM Date of : 1970 Age: 49 Room: [facility] Gender: Female Note Status: Finalized Procedure: Total Colonoscopy to Cecum Indications: Screening in patient at increased risk: Colorectal cancer in father 60 or older Providers: Elijah Rasheed MD Referring MD: DYLAN DASH MD Requesting Provider: Medicines: Monitored Anesthesia Care Complications: No immediate complications. Procedure: Pre-Anesthesia Assessment: - The heart rate, respiratory rate, oxygen saturations, blood pressure, adequacy of pulmonary ventilation, and response to care were monitored throughout the procedure. The Colonoscope was introduced through the anus and advanced to the cecum, identified by appendiceal orifice and ileocecal valve. The colonoscopy was performed without difficulty. The patient tolerated the procedure well. The quality of the bowel preparation was excellent. Findings: The perianal and digital rectal examinations were normal. No other significant abnormalities were identified in a careful examination of the remainder of the colon. The exam was otherwise without abnormality on direct and retroflexion views. Impression: - The examination was otherwise normal on direct and retroflexion views. - No specimens collected. - The exam was otherwise normal to the cecum. Recommendation: - Patient has a contact number available for emergencies. The signs and symptoms of potential delayed complications were discussed with the patient. Return to normal activities tomorrow. Written discharge instructions were provided to the patient. - High fiber diet. - Discharge patient to home. - Continue present medications. - Repeat colonoscopy in 5 years for screening purposes. - Return to referring physician. - The findings and recommendations were discussed with the patient. Procedure Code(s): --- Professional --- G0105, Colorectal cancer screening; colonoscopy on individual at high risk Diagnosis Code(s): --- Professional --- Z80.0, Family history of malignant neoplasm of digestive organs CPT copyright 2019 [employer]. All rights reserved. The codes documented in this report are preliminary and upon certified procedural coder review may be revised to meet current compliance requirements. Elijah Rasheed MD Elijah Rasheed MD 04/22/2020 7:53:24 AM Electronically signed by Elijah Rasheed MD Number of Addenda: 0 Note Initiated On: 04/22/2020 7:33 AM Estimated Blood Loss: Estimated blood loss: none.
[2020-04-22 08:20] VITALS: BP 107/60
== END 2020-04-22 08:28 | disposition home or self-care (01) ==
LOC: M OPP 06:49
PROVIDERS: ATTEND Internal Medicine Gastroenterology
DX: Z12.11 Encounter for screening for malignant neoplasm of colon (principal); Z80.0 Family history of malignant neoplasm of digestive organs

== ENCOUNTER → 2020-12-23 | Outpatient (REF) | LOC: M EMP 11:43 | PROVIDERS: ATTEND Family Medicine | DX: Z20.822 Contact with and (suspected) exposure to COVID-19 (principal) ==

== ENCOUNTER → 2022-02-22 | Outpatient (CLI) | payer BC ==
[2022-02-22 16:09] LABS: CALCIUM LEVEL 9.3 MG/DL (8.5-10.1); CREATININE FOR GFR 1.05 MG/DL (0.55-1.30); GLOMERULAR FILTRATION RATE 59.1 (>51); POTASSIUM SERUM 4.3 MMOL/L (3.5-5.1)
== END ==
LOC: M LAB 14:53
PROVIDERS: ATTEND Internal Medicine
DX: L65.9 Nonscarring hair loss, unspecified (principal)

== ENCOUNTER → 2022-07-18 | Outpatient (REF) | payer BC | LOC: M SFHCDERM 16:07 | PROVIDERS: ATTEND Physician Assistant | DX: D48.5 Neoplasm of uncertain behavior of skin (principal) ==

== ENCOUNTER → 2022-08-15 | Outpatient (REF) | payer BC ==
[2022-08-15 09:53] LABS: ALBUMIN 4.1 G/DL (3.2-5.2); ALKALINE PHOSPHATASE 105 U/L (46-116); ALT/SGPT 17 U/L (7.0-40); AST/SGOT 13 U/L (<34); BILIRUBIN,TOTAL 0.5 MG/DL (0.3-1.2); BLOOD UREA NITROGEN 14 MG/DL (9-23); CALCIUM LEVEL 8.6 MG/DL (8.5-10.1); CARBON DIOXIDE LEVEL 26 MMOL/L (20-31); CHLORIDE LEVEL 105 MMOL/L (98-107); CREATININE FOR GFR 0.96 MG/DL (0.55-1.30); GLOMERULAR FILTRATION RATE > 60.0 (>51); GLUCOSE, FASTING 87 MG/DL (60-100); POTASSIUM SERUM 4.1 MMOL/L (3.5-5.1); SODIUM LEVEL 139 MMOL/L (136-145); TOTAL PROTEIN 7.2 G/DL (5.7-8.2)
== END ==
LOC: M LAB REF 08:58
PROVIDERS: ATTEND Internal Medicine
DX: R73.9 Hyperglycemia, unspecified (principal)

== ENCOUNTER → 2023-03-16 | Outpatient (REF) | payer BC ==
[2023-03-16 09:46] LABS: BLOOD UREA NITROGEN 19 MG/DL (9-23); CALCIUM LEVEL 9.2 MG/DL (8.5-10.1); CARBON DIOXIDE LEVEL 26 MMOL/L (20-31); CHLORIDE LEVEL 105 MMOL/L (98-107); CREATININE FOR GFR 0.82 MG/DL (0.55-1.30); GLOMERULAR FILTRATION RATE > 60.0 (>51); GLUCOSE, FASTING 82 MG/DL (60-100); POTASSIUM SERUM 4.5 MMOL/L (3.5-5.1); SODIUM LEVEL 137 MMOL/L (136-145)
== END ==
LOC: M LAB REF 09:14
PROVIDERS: ATTEND Internal Medicine
DX: L65.9 Nonscarring hair loss, unspecified (principal)

== ENCOUNTER → 2023-08-24 | Outpatient (REF) | payer BC ==
[2023-08-24 09:37] LABS: BASO # 0.1 10^3/uL (0.0-0.2); BASO % 0.5 % (0.0-1.0); EOS # 0.3 10^3/uL (0.0-0.5); EOS % 2.5 % (0.0-3.0); HEMATOCRIT 43.2 % (36.0-47.0); HEMOGLOBIN 14.8 g/dl (12.0-15.5); LYMPH # 2.4 10^3/uL (1.5-5.0); LYMPH % 23.3 % (24.0-44.0); MEAN CORPUSCULAR HEMOGLOBIN 29.2 pg (27.0-33.0); MEAN CORPUSCULAR HGB CONC 34.3 g/dl (32.0-36.5); MEAN CORPUSCULAR VOLUME 85.2 fl (80.0-96.0); MONO # 0.6 10^3/uL (0.0-0.8); MONO % 6.1 % (2.0-8.0); NEUTROPHILS # 6.8 10^3/uL (1.5-8.5); NEUTROPHILS % 67.3 % (36.0-66.0); PLATELET COUNT, AUTOMATED 370 10^3/uL (150-450); RED BLOOD COUNT 5.07 10^6/uL (4.00-5.40); WHITE BLOOD COUNT 10.1 10^3/uL (4.0-10.0)
[2023-08-24 09:57] LABS: ALKALINE PHOSPHATASE 104 U/L (46-116); ALT/SGPT 25 U/L (7.0-40); AST/SGOT 14 U/L (<34); BILIRUBIN,TOTAL 0.3 MG/DL (0.3-1.2); BLOOD UREA NITROGEN 18 MG/DL (9-23); CALCIUM LEVEL 8.8 MG/DL (8.5-10.1); CARBON DIOXIDE LEVEL 27 MMOL/L (20-31); CHLORIDE LEVEL 104 MMOL/L (98-107); GLOMERULAR FILTRATION RATE > 60.0 (>51); GLUCOSE, FASTING 92 MG/DL (60-100); POTASSIUM SERUM 4.5 MMOL/L (3.5-5.1); SODIUM LEVEL 137 MMOL/L (136-145); TOTAL PROTEIN 7.2 G/DL (5.7-8.2)
[2023-08-24 10:00] LABS: THYROID STIMULATING HORMONE 2.784 uIU/ML (0.55-4.78)
== END ==
LOC: M LAB REF 09:08
PROVIDERS: ATTEND Internal Medicine
DX: L65.9 Nonscarring hair loss, unspecified (principal)

== ENCOUNTER 2024-04-02 19:22 | Observation (INO) | payer BC ==
[~2024-04-02] VITALS: Ht 162.6 cm; Wt 77.4 kg
[2024-04-02 19:43] LABS: BASO % 0.2 % (0.0-1.0); EOS # 0.1 10^3/uL (0.0-0.5); EOS % 0.5 % (0.0-3.0); HEMATOCRIT 42.5 % (36.0-47.0); HEMOGLOBIN 14.2 g/dl (12.0-15.5); LYMPH # 2.5 10^3/uL (1.5-5.0); LYMPH % 13.6 % (24.0-44.0); MEAN CORPUSCULAR HGB CONC 33.4 g/dl (32.0-36.5); MEAN CORPUSCULAR VOLUME 86.7 fl (80.0-96.0); MONO # 1.2 10^3/uL (0.0-0.8); MONO % 6.3 % (2.0-8.0); NEUTROPHILS # 14.7 10^3/uL (1.5-8.5); NEUTROPHILS % 79.1 % (36.0-66.0); PLATELET COUNT, AUTOMATED 332 10^3/uL (150-450); WHITE BLOOD COUNT 18.6 10^3/uL (4.0-10.0)
[2024-04-02 20:16] LABS: BLOOD UREA NITROGEN 15 MG/DL (9-23); CARBON DIOXIDE LEVEL 28 MMOL/L (20-31); CHLORIDE LEVEL 107 MMOL/L (98-107); CREATININE FOR GFR 0.85 MG/DL (0.55-1.30); GLOMERULAR FILTRATION RATE > 60.0 (>51); GLUCOSE, FASTING 92 MG/DL (60-100); POTASSIUM SERUM 4.4 MMOL/L (3.5-5.1); SODIUM LEVEL 139 MMOL/L (136-145)
[2024-04-02] MEDS ORDERED: ISOVUE-370 76% 100ML VIAL As Ordered ONE (21:04)
[2024-04-02 21:14] LABS: LIPASE 51 U/L (12-53)
[2024-04-02 21:16] LABS: ALBUMIN 3.7 G/DL (3.2-5.2); ALKALINE PHOSPHATASE 90 U/L (35-104); ALT/SGPT 13 U/L (7.0-40); AST/SGOT 14 U/L (<34); BILIRUBIN,DIRECT 0.1 MG/DL (<0.4); BILIRUBIN,TOTAL 0.5 MG/DL (0.3-1.2); TOTAL PROTEIN 7.4 G/DL (5.7-8.2)
[2024-04-02 21:19] LABS: HCG, SERUM QUALITATIVE NEGATIVE (NEGATIVE)
[2024-04-02] MEDS: MORPHINE 4 MG/ML 1ML VIAL IV ONE (21:45)
[2024-04-02 21:52] LABS: KETONE, URINE AUTO RFX NEGATIVE (NEGATIVE); LEUKOCYTE ESTERASE UR AUTO RFX NEGATIVE (NEGATIVE); NITRITE, URINE AUTO RFX NEGATIVE (NEGATIVE); RBC, URINE AUTO RFX 2 /HPF (0-3); SQUAM EPITHELIAL CELL UR AURFX 1 /HPF (0-6); WBC, URINE AUTO RFX 1 /HPF (0-3)
[2024-04-02] MEDS: NS 500 ML IV ONE (21:59)
[2024-04-02] MEDS: KETOROLAC 30 MG/ML 1ML VIAL IV ONE (22:00)
[2024-04-02] MEDS: PIPERACILLIN/TAZOBACTAM SOD 4.5 GM in DEXTROSE 5% (D5W) ADV/MINI-BAG 50 ML IV ONE (23:37)
[2024-04-02 23:55] LABS: Trichomonas vaginalis (AMP) NOT DETECTED (NEGATIVE)
[2024-04-03 00:18] LABS: GC DNA AMPLIFICATION NEGATIVE (NEGATIVE)
[2024-04-03] MEDS: metroNIDAZOLE (FLAGYL) 500MG TABLET PO ONE (00:45)
[2024-04-03] MEDS ORDERED: MORPHINE 4 MG/ML 1ML VIAL IV PRN (04:40)
[2024-04-03] MEDS ORDERED: ACETAMINOPHEN 325 MG TAB PO PRN (04:40)
[2024-04-03] MEDS ORDERED: MOM 30ML SUSPENSION UDC PO PRN (04:40)
[2024-04-03] MEDS ORDERED: metroNIDAZOLE 750 MG in IV 1 EA IV SCH (04:40)
[2024-04-03] MEDS ORDERED: KETOROLAC 30 MG/ML 1ML VIAL IV PRN (05:00)
[2024-04-03 06:12] LABS: HEMATOCRIT 38.7 % (36.0-47.0); HEMOGLOBIN 12.9 g/dl (12.0-15.5); MEAN CORPUSCULAR HEMOGLOBIN 28.7 pg (27.0-33.0); MEAN CORPUSCULAR HGB CONC 33.3 g/dl (32.0-36.5); PLATELET COUNT, AUTOMATED 279 10^3/uL (150-450); WHITE BLOOD COUNT 15.3 10^3/uL (4.0-10.0)
[2024-04-03] MEDS: PIPERACILLIN/TAZOBACTAM SOD 4.5 GM in DEXTROSE 5% (D5W) ADV/MINI-BAG 50 ML IV SCH (06:30)
[2024-04-03 06:56] LABS: ALBUMIN 3.2 G/DL (3.2-5.2); ALKALINE PHOSPHATASE 83 U/L (35-104); ALT/SGPT 12 U/L (7.0-40); AST/SGOT 14 U/L (<34); BILIRUBIN,TOTAL 0.8 MG/DL (0.3-1.2); BLOOD UREA NITROGEN 15 MG/DL (9-23); CALCIUM LEVEL 8.9 MG/DL (8.5-10.1); CARBON DIOXIDE LEVEL 27 MMOL/L (20-31); CHLORIDE LEVEL 105 MMOL/L (98-107); CREATININE FOR GFR 0.95 MG/DL (0.55-1.30); GLOMERULAR FILTRATION RATE > 60.0 (>51); GLUCOSE, FASTING 97 MG/DL (60-100); POTASSIUM SERUM 4.4 MMOL/L (3.5-5.1); SODIUM LEVEL 139 MMOL/L (136-145); TOTAL PROTEIN 6.9 G/DL (5.7-8.2)
[2024-04-03] MEDS ORDERED: HAIR1CHW2 PO (07:07)
[2024-04-03] MEDS ORDERED: THERTAB52 PO (07:07)
[2024-04-03] MEDS ORDERED: CALC-234 PO (07:07)
[2024-04-03] MEDS ORDERED: SPIR-10 PO (07:07)
[2024-04-03] MEDS ORDERED: MINO2.5T PO (07:07)
[2024-04-03] MEDS ORDERED: HOME MED LIST COMPLETE! XX SCH (07:10)
[2024-04-03] MEDS: ENOXAPARIN 40MG/0.4ML SYRINGE (J1650 PER 10MG) SC SCH (08:53)
[2024-04-03] MEDS ORDERED: metroNIDAZOLE 500 MG in IV 1 EA IV SCH ×2 (09:00→11:00)
[2024-04-03] MEDS ORDERED: LEVO1TAB39 PO (09:53)
[2024-04-03] MEDS ORDERED: METR-265 PO (09:54)
[2024-04-03 10:38] LABS: CARCINOEMBRYONIC ANTIGEN < 2.0 NG/ML (<2.5)
[2024-04-03 10:53] LABS: CA19-9 TUMOR MARKER,CARBOHYDRA 3.3 U/ML (<35.0)
[2024-04-03] MEDS ORDERED: ACET32TAB PO (10:53)
[2024-04-03 11:42] VITALS: BP 122/74; TEMP 97.1; O2SAT 100
[2024-04-03] MEDS ORDERED: cefTRIAXone SOD 1 GM in DEXTROSE 5% (D5W) ADV/MINI-BAG 50 ML IV SCH (12:00)
[2024-04-05 15:07] LABS: INHIBIN A ULTRASENSITIVE 25.9 pg/mL (.); INHIBIN B <7.0 pg/mL (.)
== END 2024-04-03 11:47 | disposition home or self-care (01) ==
LOC: M ED 19:22 → M ED INP 04-03 04:39
PROVIDERS: ADMIT Student in an Organized Health Care Education/Training Program; ATTEND Student in an Organized Health Care Education/Training Program
DX: N83.291 Other ovarian cyst, right side (principal); K65.9 Peritonitis, unspecified; Z79.2 Long term (current) use of antibiotics; Z79.899 Other long term (current) drug therapy; A41.9 Sepsis, unspecified organism
CPT/HCPCS: 36415; 74177; 76830; 76856; 80048; 80053; 80076; 81001; 82105; 82378; 83520; 83605; 83615; 83690; 84703; 85025; 85027; 86301; 86304; 86305; 86336; 87040; 87210; 87661; 87810; 87850; 93041; 93976; 96365; 96366; 96372; 96375; 99285; J1650; J1885; J2543; Q9967

== ENCOUNTER 2024-04-05 06:10 | Observation (INO) | payer BC ==
[2024-04-05] VITALS (11 sets, daily range): BP systolic 106–132; BP diastolic 55–69; TEMP 97.2–97.9; O2SAT 95–100
[~2024-04-05] VITALS: Ht 162.6 cm; Wt 77.2 kg
[~2024-04-05 06:10] MED LIST: ACET32TAB PO; CALC-234 PO; HAIR1CHW2 PO; LEVO1TAB39 PO; METR-265 PO; MINO2.5T PO; SPIR-10 PO; THERTAB52 PO
[2024-04-05] MEDS ORDERED: NS (Normal Saline) 0.9% 1,000 ML IV SCH (06:25)
[2024-04-05] MEDS ORDERED: MIDAZOLAM INJ 2MG/2ML VIAL As Ordered ONE (07:51)
[2024-04-05] MEDS ORDERED: KETOROLAC 60MG 2ML VIAL As Ordered ONE (07:51)
[2024-04-05] MEDS ORDERED: ONDANSETRON 4MG 2ML VIAL As Ordered ONE (07:51)
[2024-04-05] MEDS ORDERED: fentaNYL 100 MCG/2 ML INJECTION As Ordered ONE (07:51)
[2024-04-05] MEDS ORDERED: propofoL 200 MG/20 ML VIAL As Ordered ONE (07:51)
[2024-04-05] MEDS ORDERED: dexmedeTOMIDine (4MCG/ML)200MCG/50ML BTL (PRECEDEX) As Ordered ONE (07:51)
[2024-04-05] MEDS ORDERED: LIDOCAINE 2% 100MG/5ML SDV (FOR ANES.) As Ordered ONE (07:51)
[2024-04-05] MEDS ORDERED: ROCURONIUM BROMIDE 50MG/5ML VIAL As Ordered ONE (07:51)
[2024-04-05] MEDS ORDERED: SUGAMMADEX SODIUM 500 MG/5 ML VIAL (BRIDION) As Ordered ONE (07:51)
[2024-04-05] MEDS ORDERED: ACETAMINOPHEN 1000MG/100ML IV BAG As Ordered ONE (07:52)
[2024-04-05] MEDS ORDERED: HYDROmorphone HCL 2MG/ML 1ML VIAL As Ordered ONE (08:05)
[2024-04-05] MEDS ORDERED: HYDROMORPHONE HCL 0.5 MG/ 0.5 ML SYRINGE IV PRN (09:25)
[2024-04-05] MEDS ORDERED: fentaNYL 100 MCG/2 ML INJECTION IV PRN (09:25)
[2024-04-05] MEDS ORDERED: oxyCODONE 5MG TAB PO PRN (09:25)
[2024-04-05] MEDS ORDERED: ONDANSETRON 4MG 2ML VIAL IV PRN ×2 (09:25→09:35)
[2024-04-05] MEDS: NS (Normal Saline) 0.9% 1,000 ML IV SCH (09:25)
[2024-04-05] MEDS ORDERED: PERCOCET 5MG/325MG TAB PO PRN (09:35)
[2024-04-05] MEDS: DOXYCYCLINE HYCLATE 100 MG in DEXTROSE 5% (D5W) MINI-BAG PLU 100 ML IV SCH (11:20)
[2024-04-05] MEDS: LR 1,000 ML IV SCH (11:20)
[2024-04-05] MEDS: PROMETHAZINE 25MG/ML 1ML VIAL IV ONE (12:14)
[2024-04-05] MEDS: MINI IV SCH (13:20)
[2024-04-05] MEDS: ADV IV SCH (13:20)
[2024-04-05] MEDS: DEXTROSE 5% IV SCH (13:20)
[2024-04-05] MEDS: CEFOTETAN DISODIUM IV SCH (13:20)
[2024-04-05] MEDS: KETOROLAC 30 MG/ML 1ML VIAL IV PRN (14:25)
[2024-04-05] MEDS: DOCUSATE SODIUM 100MG CAPSULE PO SCH (21:22)
[2024-04-06 04:03] VITALS: BP 116/63; TEMP 97.5
[2024-04-06 07:27] LABS: BASO % 0.2 % (0.0-1.0); EOS % 0.2 % (0.0-3.0); HEMATOCRIT 34.4 % (36.0-47.0); HEMOGLOBIN 11.5 g/dl (12.0-15.5); LYMPH # 2.2 10^3/uL (1.5-5.0); MEAN CORPUSCULAR HEMOGLOBIN 29.1 pg (27.0-33.0); MEAN CORPUSCULAR HGB CONC 33.4 g/dl (32.0-36.5); MEAN CORPUSCULAR VOLUME 87.1 fl (80.0-96.0); MONO # 0.8 10^3/uL (0.0-0.8); MONO % 5.8 % (2.0-8.0); NEUTROPHILS # 9.8 10^3/uL (1.5-8.5); NEUTROPHILS % 76.5 % (36.0-66.0); PLATELET COUNT, AUTOMATED 265 10^3/uL (150-450); RED BLOOD COUNT 3.95 10^6/uL (4.00-5.40); WHITE BLOOD COUNT 12.9 10^3/uL (4.0-10.0)
[2024-04-06] MEDS ORDERED: IBUP-1022 PO (08:21)
[2024-04-06 08:35] VITALS: BP 113/73; TEMP 97.7; O2SAT 96
== END 2024-04-06 10:30 | disposition home or self-care (01) ==
LOC: M SDC 06:10 → M RR INP 06:11 → M PED 10:15 → M MS5PR 17:22
PROVIDERS: ADMIT Specialist; ATTEND Specialist
DX: N70.93 Salpingitis and oophoritis, unspecified (principal); N73.6 Female pelvic peritoneal adhesions (postinfective)
CPT/HCPCS: 36415; 58661; 85025; 88302; 88307; 93005; 96361; 96365; 96366; 96367; 96375; 96376; J0131; J0665; J1100; J1171; J1885; J2250; J2405; J2550; J3010; S0074; S2900

== ENCOUNTER → 2024-10-12 | Outpatient (CLI) | payer BC ==
[~2024-10-12] MED LIST changes: +IBUP-1022 PO
== END ==
LOC: M RAD 14:06
PROVIDERS: ATTEND Physician Assistant
DX: M51.360 Other intervertebral disc degeneration, lumbar region with discogenic back pain only (principal); M47.896 Other spondylosis, lumbar region; M46.1 Sacroiliitis, not elsewhere classified

== ENCOUNTER → 2024-12-23 | Outpatient (REF) | payer BC ==
[~2024-12-23] MED LIST changes: -IBUP-1022 PO; +IBUP600T42 PO
== END ==
LOC: M SFHCDERM 17:28
PROVIDERS: ATTEND Physician Assistant
DX: L43.8 Other lichen planus (principal)

== ENCOUNTER → 2025-01-27 | Outpatient (REF) | payer BC | LOC: M SFHCWAGY 15:16 | PROVIDERS: ATTEND Specialist | DX: Z01.419 Encounter for gynecological examination (general) (routine) without abnormal findings (principal); R87.612 Low grade squamous intraepithelial lesion on cytologic smear of cervix (LGSIL) | CPT/HCPCS: 87624; G0123 ==